=== PATIENT | female | born 1970 | race Caucasian/White ===

== ENCOUNTER 2016-12-26 09:20 | Outpatient (CLI) | payer OTHER | END 2016-12-26 09:21 | disposition home or self-care (01) | LOC: RT 09:20 | PROVIDERS: ATTEND Family Medicine | DX: E66.01 Morbid (severe) obesity due to excess calories (principal) | CPT/HCPCS: 94010 ==

== ENCOUNTER 2017-01-01 12:41 | Outpatient (CLI) | payer OTHER ==
--- NOTE | 2017-01-02 09:29 | Mammography Report ---
DIGITAL BILATERAL SCREENING MAMMOGRAM: 01/01/2017 CLINICAL HISTORY: A 46-year-old female in for routine screening mammogram. Patient's family history is unknown. She has no surgical history. COMPARISON: 06/02/2008, 09/29/2009, 06/20/2011, 06/27/2011, 12/29/2011, 07/12/2012, 12/27/2012, 0209/2013, 12/07/2015 TECHNIQUE: Craniocaudad and oblique lateral views of each breast were obtained with [employer] [facility] digital mammography. Axillary exaggerated craniocaudad view of each breast was obtained to compli ment the exam. FINDINGS: Breast parenchyma consists of scattered fibroglandular densities. No significant clusters of calcification are seen. No significant masses are noted. No change is seen. IMPRESSION: BREASTS APPEAR RADIOGRAPHICALLY BENIGN. BIRADS CATEGORY 1 - NEGATIVE. RECOMMENDATIONS: Annual bilateral screening mammography. STANDARD QUALIFYING STATEMENTS 1. This examination was reviewed with the aid of Computer-Aided Detection (CAD). 2. A negative or benign imaging report should not delay biopsy if clinically suspicious findings are present. Consider surgical consultation if warranted. More than 5% of cancers are not identified by i maging. 3. Dense breasts may obscure an underlying neoplasm. JOB #: [id number] EXT JOB #:[id number]
== END 2017-01-01 12:42 | disposition home or self-care (01) ==
LOC: DI 12:41
PROVIDERS: ATTEND Family Medicine
DX: Z12.31 Encounter for screening mammogram for malignant neoplasm of breast (principal)
CPT/HCPCS: 77067

== ENCOUNTER 2017-01-02 09:33 | Outpatient (CLI) | payer OTHER | END 2017-01-02 09:34 | disposition home or self-care (01) | LOC: SC 09:33 | PROVIDERS: ATTEND Internal Medicine Pulmonary Disease | DX: G47.10 Hypersomnia, unspecified (principal); R06.83 Snoring; G47.8 Other sleep disorders | CPT/HCPCS: 99203; 99212 ==

== ENCOUNTER 2017-03-01 21:25 | Outpatient (CLI) | payer OTHER | END 2017-03-01 21:26 | disposition home or self-care (01) | LOC: SC 21:25 | PROVIDERS: ATTEND Internal Medicine Pulmonary Disease | DX: R06.83 Snoring (principal) | CPT/HCPCS: 95810 ==

== ENCOUNTER 2017-03-29 09:10 | Outpatient (CLI) | payer OTHER | END 2017-03-29 09:11 | disposition home or self-care (01) | LOC: SC 09:10 | PROVIDERS: ATTEND Nurse Practitioner Family | DX: R06.83 Snoring (principal) | CPT/HCPCS: 99212; 99213 ==

== ENCOUNTER 2018-01-18 09:15 | Outpatient (CLI) | payer OTHER ==
--- NOTE | 2018-01-21 17:02 | Mammography Report ---
Procedure Date: 01/18/2018 Accession Number: [id number] / [id number] Procedure: [facility]N - Screening Mammo Dig Bilat CPT Code: FULL RESULT: EXAM: Screening Mammo Dig Bilat DATE: 01/18/2018 9:35 AM CLINICAL HISTORY: 47-year-old female presents for screening mammogram. TECHNIQUE: Bilateral CC and MLO views were obtained. Additionally, a left XCCL view was obtained. COMPARISON: 01/01/2017, 12/07/2015, 07/22/2013. FINDINGS: The breasts demonstrate scattered fibroglandular densities bilaterally. No suspicious masses, clustered microcalcifications, or regions of architectural distortion are identified. IMPRESSION: Negative examination RECOMMENDATION: Routine annual screening unless otherwise clinically indicated. BIRADS CATEGORY 1: Negative STANDARD QUALIFYING STATEMENTS: 1. This examination was reviewed with the aid of Computer-Aided Detection (CAD). 2. A negative or benign imaging report should not delay biopsy if clinically suspicious findings are present. Consider surgical consultation if warrented. More than 5% of cancers are not identified by imaging. 3. Dense breasts may obscure an underlying neoplasm.
== END 2018-01-18 09:16 | disposition home or self-care (01) ==
LOC: DI.N 09:15
PROVIDERS: ATTEND Radiology Diagnostic Radiology
DX: Z12.31 Encounter for screening mammogram for malignant neoplasm of breast (principal)
CPT/HCPCS: 77067

== ENCOUNTER 2018-02-12 09:50 | Outpatient (CLI) | payer OTHER ==
[2018-02-12 12:33] LABS: CHOL/HDL RATIO 2.9 (<4.4); CHOLESTEROL 160 mg/dL; GLUCOSE,FASTING 94 mg/dL (70-100); HDL CHOLESTEROL 55 mg/dL; LDL CHOLESTEROL,CALCULATED 86 mg/dL; LDL/HDL RATIO 1.6 (<4.4); VLDL CHOLESTEROL 19 mg/dL
== END 2018-02-12 09:51 | disposition home or self-care (01) ==
LOC: LAB.WCP 09:50
PROVIDERS: ATTEND Registered Nurse
DX: Z01.419 Encounter for gynecological examination (general) (routine) without abnormal findings (principal)
CPT/HCPCS: 36415; 80061; 82947; 83721; 84443

== ENCOUNTER 2018-03-06 09:40 | Outpatient (CLI) | payer OTHER ==
--- NOTE | 2018-03-07 09:40 | Ultrasound Report ---
Reason: PELVIC AND PERINEAL PAIN Procedure Date: 03/06/2018 Accession Number: [id number] / [id number] Procedure: US - Pelvic w/Transvaginal CPT Code: FULL RESULT: EXAM: PELVIC ULTRASOUND EXAM DATE: 03/06/2018 10:39 AM. CLINICAL HISTORY: Pelvic and perineal pain. COMPARISON: None. TECHNIQUE: Realtime transabdominal pelvic scan performed to identify the uterus and adnexa and as an overview of other pelvic structures, followed by transvaginal scan to provide greater detail of the uterus and adnexa, with static image documentation. FINDINGS: Uterus: 13.2 x 7.5 x 5.7 cm, volume 295 cc. Anteverted position. Normal overall size and echotexture. Masses: Intramural thyroids are noted measuring up to 1.7 cm. Endometrium: There is focal fundal thickening of the endometrium up to 15 mm. This is within the upper limits of normal. The remaining endometrium is normal-appearing and thin. Cervix: Nabothian cysts are noted. Right Ovary: 3.1 x 2.5 x 1.5 cm, volume 6 cc. Normal echotexture and blood flow. Left Ovary: 2.2 x 2.2 x 1.8 cm, volume 4.6 cc. Normal echotexture and blood flow. Free Fluid: None. Other: None. IMPRESSION: Focal thickening within the fundus of the endometrium which is within limits of normal for the premenopausal patient. Follow up ultrasound in 2 weeks to assess for cyclic variation could be considered. RADIA
== END 2018-03-06 09:41 | disposition home or self-care (01) ==
LOC: DI 09:40
PROVIDERS: ATTEND Registered Nurse
DX: R10.2 Pelvic and perineal pain (principal)
CPT/HCPCS: 76830; 76856

== ENCOUNTER 2018-04-09 10:17 | Outpatient (CLI) | payer OTHER ==
[2018-04-09] MEDS ORDERED: BARIUM SULFATE 148 GM POWDER PO ONE (11:26)
[2018-04-09] MEDS ORDERED: BARIUM SULFATE 135 ML BOTTLE PO ONE (11:26)
--- NOTE | 2018-04-09 13:27 | XRAY Report ---
Reason: HIATAL HERNIA W/REFLUX, GERD Procedure Date: 04/09/2018 Accession Number: [id number] / [id number] Procedure: FL - UGI KUB W/Air CPT Code: FULL RESULT: ORIGINAL REPORT Reason: HIATAL HERNIA W/REFLUX, GERD Procedure Date: 04/09/2018 Accession Number: [id number] / [id number] Procedure: FL - UGI KUB W/Air CPT Code: FULL RESULT: EXAM: UPPER GI SERIES EXAM DATE: 04/09/2018 11:21 AM. CLINICAL HISTORY: HIATAL HERNIA W/REFLUX, GERD. COMPARISONS: None. TECHNIQUE: Routine double contrast upper gastrointestinal technique. Fluoroscopy Time: 4 minutes 23 seconds. Number of fluoroscopy images: 17. FINDINGS: Swallowing Mechanism: Normal oral phase and swallowing reflex. No episodes of tracheal penetration or aspiration evident. Esophageal Motility: Normal peristaltic stripping wave. Esophageal Mucosa: No ulcerations or masses. Gastroesophageal Junction: Tiny hiatal hernia occasionally present. No significant reflux demonstrated with or without Valsalva maneuvers. Stomach: Normal gastric mucosal pattern. No ulcers identified. Duodenum: Normal duodenal mucosal pattern. No ulcers or diverticula identified. Other: None. IMPRESSION: Tiny intermittently present hiatal hernia; otherwise negative double contrast upper GI. [facility] ADDENDUM #1 This addendum is to reflect that measurement was made to estimate the degree of sliding hiatal hernia. Within the margin of error, approximately 1.5 cm of the gastric antral region slide into the chest with the inspiration views obtained.
== END 2018-04-09 10:18 | disposition home or self-care (01) ==
LOC: DI 10:17
PROVIDERS: ATTEND Family Medicine
DX: K44.9 Diaphragmatic hernia without obstruction or gangrene (principal); K21.9 Gastro-esophageal reflux disease without esophagitis
CPT/HCPCS: 74247; A9270

== ENCOUNTER 2018-11-26 08:00 | Outpatient (CLI) | payer BC, OTHER ==
[2018-11-26 14:43] LABS: BASOPHILS % (AUTO) 0.6 %; EOSINOPHILS # (AUTO) 0.1 10^3/uL (0.0-0.7); EOSINOPHILS % (AUTO) 1.3 %; HGB - HEMOGLOBIN 12.8 g/dL (12.0-16.0); LYMPHOCYTES # (AUTO) 2.3 10^3/uL (1.5-3.5); LYMPHOCYTES % (AUTO) 35.9 %; MEAN CORPUSCULAR HEMOGLOBIN 28.4 pg (27.0-31.0); MEAN CORPUSCULAR HGB CONC 32.7 g/dL (32.0-36.0); MEAN CORPUSCULAR VOLUME 86.7 fL (81.0-99.0); MEAN PLATELET VOLUME 8.2 fL (7.9-10.8); MONOCYTES # (AUTO) 0.4 10^3/uL (0.0-1.0); MONOCYTES % (AUTO) 6.8 %; NEUTROPHILS # (AUTO) 3.5 10^3/uL (1.5-6.6); NEUTROPHILS % (AUTO) 55.4 %; PLT - PLATELET COUNT 301 10^3/uL (130-450); RED BLOOD COUNT 4.52 10^6/uL (4.20-5.40); RED CELL DISTRIBUTION WIDTH 14.4 % (12.0-15.0); WHITE BLOOD COUNT 6.3 x10^3/uL (4.8-10.8)
[2018-11-26 14:55] LABS: ALBUMIN 3.7 g/dL (3.2-5.5); ALBUMIN/GLOBULIN RATIO 1.1 (1.0-2.2); ALKALINE PHOSPHATASE 68 IU/L (42-121); ALT ALANINE AMINOTRANSFERASE 14 IU/L (10-60); AST ASPARTATE AMINOTRANSFERASE 19 IU/L (10-42); BILIRUBIN,TOTAL 0.5 mg/dL (0.2-1.0); BUN - BLOOD UREA NITROGEN 12 mg/dL (6-20); CARBON DIOXIDE - CO2 26 mmol/L (21-32); CHLORIDE 102 mmol/L (101-111); CREATININE 0.8 mg/dL (0.4-1.0); GFR - MDRD 77 (>89); GLUCOSE 96 mg/dL (70-100); SODIUM 137 mmol/L (135-145)
[2018-11-26 15:00] LABS: CRP - C-REACTIVE PROTEIN < 1.0 mg/dL (0-1.0)
== END 2018-11-26 08:01 | disposition home or self-care (01) ==
LOC: LAB.WCP 08:00
PROVIDERS: ATTEND Physician Assistant Medical
DX: R20.2 Paresthesia of skin (principal)
CPT/HCPCS: 36415; 80053; 84443; 85025; 85651; 86140

== ENCOUNTER 2018-11-29 07:45 | Outpatient (CLI) | payer BC ==
[2018-11-29] MEDS ORDERED: GADOBUTROL 10 MMOL/10 ML VIAL ONE (08:40)
--- NOTE | 2018-11-29 17:21 | MRI Report ---
Reason: FACIAL PARESTHESIA Procedure Date: 11/29/2018 Accession Number: [id number] / [id number] Procedure: MRI - Brain W/WO CPT Code: FULL RESULT: MRI BRAIN WITHOUT AND WITH CONTRAST INDICATION: 48-year-old female with facial paresthesias. Concern for possible multiple sclerosis. Please assess. TECHNIQUE: 1. Sagittal T1 3D and sagittal T2 FLAIR. 2. Axial T1 3D, FLAIR, T2 and DWI. 3. 10 cc of IV Gadavist. T1 3D and T1 spin-echo axials. COMPARISON: 02/13/2014. FINDINGS: Ventricular size is normal. Again demonstrated is a mild amount of white matter disease in the supratentorial brain, manifested as punctate T2 hyperintensities that are scattered throughout the deep and subcortical white matter bilaterally. A frontoparietal distribution predominates. The distribution is similar to prior study. In addition, the number of lesions is similar without apparent significant interval progression since the prior examination. There is no involvement of the immediate periventricular or pericallosal regions. No T2 hyperintensities seen in the corpus callosum itself. In addition, no discrete brainstem, cerebellar or cerebellar peduncle lesion is demonstrated. Of note, on image 12 of series 701 there appears to be a small curvilinear focus of high signal in the left side of the pio. However, this is not confirmed as a real finding on any of the other sequences. This represents artifact. No obvious pathology seen in the imaged upper cervical spinal cord. Flow voids are demonstrated in the main intracranial arteries. No abnormal diffusion restriction is demonstrated. A T2* GRE sequence has not been performed; however, there is no evidence of acute or chronic hemorrhage on the sequences provided. No enhancing space-occupying mass lesion is demonstrated. No pathologic meningeal or cranial nerve enhancement is demonstrated. In particular, there is no abnormal enhancement of cisternal segment of either trigeminal nerve. In addition, no evidence of enhancing mass lesion in either Meckel's cave. Limited assessment of the orbits reveals no gross pathology. There is mild mucosal thickening in the ethmoid air cells. A small mucus retention cyst is seen in the right maxillary sinus. There is mucosal thickening with mucous retention cyst in the left frontal sinus, unchanged. The paranasal sinuses are otherwise clear. A small amount of fluid has developed in air cells at the right mastoid tip. There is no soft tissue swelling overlying the right mastoid. No evidence of an obstructing nasopharyngeal mass. The middle ear cavities and left mastoid appear clear. IMPRESSION: 1. Again demonstrated is a very mild amount of white disease in the supratentorial brain. The etiology is uncertain. Differential diagnostic considerations would include virtually the entire gamut of white matter disease. However, the index of suspicion for multiple sclerosis is very low. 2. Imaging of the brain is otherwise unremarkable. No evidence of infarction, hemorrhage, space-occupying mass lesion or other acute intracranial pathology. 3. There has been interval development of a small amount of fluid at the right mastoid tip. Etiology is uncertain. The possibility of active mastoid infection is considered unlikely; however, clinical correlation is advised.
== END 2018-11-29 07:46 | disposition home or self-care (01) ==
LOC: DI 07:45
PROVIDERS: ATTEND Physician Assistant Medical
DX: R20.2 Paresthesia of skin (principal); R90.82 White matter disease, unspecified
CPT/HCPCS: 70553; A9585

== ENCOUNTER 2019-02-27 13:55 | Outpatient (CLI) | payer BC ==
--- NOTE | 2019-03-03 16:45 | Mammography Report ---
Reason: SCREENING MAMMO Procedure Date: 02/27/2019 Accession Number: [id number] / [id number] Procedure: [facility] - Screening Mammo w/Matthew CPT Code: FULL RESULT: EXAM: Screening Mammo w/Matthew DATE: 02/27/2019 2:28 PM CLINICAL HISTORY: Routine screening TECHNIQUE: (B) - Bilateral CC and MLO views were obtained. COMPARISON: 01/18/2018, 01/01/2017, 12/07/2015 and to 414 PARENCHYMAL PATTERN: (D) - The breasts demonstrate heterogeneously dense fibroglandular parenchyma bilaterally. FINDINGS: No significant interval change. There are no suspicious masses, calcifications, or areas of distortion. IMPRESSION: Negative examination. BI-RADS category 1. RECOMMENDATION: (ANNUAL) - Recommend routine annual screening mammography. BI-RADS CATEGORY: (1) - Negative. STANDARD QUALIFYING STATEMENTS: 1. This examination was not reviewed with the aid of Computer-Aided Detection (CAD). 2. A negative or benign imaging report should not preclude biopsy if clinically suspicious findings are present. 3. Dense breasts may obscure an underlying neoplasm. 4. This examination was reviewed with the aid of 3D breast imaging (tomosynthesis).
== END 2019-02-27 13:56 | disposition home or self-care (01) ==
LOC: DI 13:55
DX: Z12.31 Encounter for screening mammogram for malignant neoplasm of breast (principal)
CPT/HCPCS: 77063; 77067

== ENCOUNTER 2019-03-12 19:12 | Outpatient (CLI) | payer BC ==
--- NOTE | 2019-03-14 08:46 | Ultrasound Report ---
Reason: DUB Procedure Date: 03/12/2019 Accession Number: [id number] / [id number] Procedure: US - Pelvic w/Transvaginal CPT Code: FULL RESULT: EXAM: PELVIC ULTRASOUND EXAM DATE: 03/12/2019 09:00 PM CLINICAL HISTORY: Dysfunctional uterine bleeding. COMPARISON: None. TECHNIQUE: Real-time transabdominal pelvic scan performed to identify the uterus and adnexa and as an overview of other pelvic structures, followed by transvaginal scan to provide greater detail of the uterus and adnexa, with static image documentation. FINDINGS: Uterus: 13.2 x 5.5 x 8 cm, volume 300.5 cc. Anteverted position. Heterogeneous myometrium. Masses: Lobular hypoechoic subserosal anterior/lower uterine segment fibroid measuring 2.1 x 2 x 2.6 cm. Endometrium: 13 mm. Seen only on transabdominal imaging. No abnormal flow or focal mass. Cervix: Multiple nabothian cysts are noted. No mass. Largest cyst measures 1.2 cm and contains debris. Right Ovary: 1.5 x 1.4 x 1.5 cm, volume 1.6 cc. Normal echotexture and blood flow. Left Ovary: 2.2 x 1.4 x 1.4 cm, volume 2.2 cc. Normal echotexture and blood flow. Free Fluid: None. Other: Technically challenging study due to body habitus. IMPRESSION: 1. 2.6 cm subserosal anterior uterine/lower uterine segment fibroid. 2. Endometrium measures up to 13 mm. No focal mass or abnormal flow. 3. Normal bilateral ovaries and adnexa. RADIA
== END 2019-03-12 19:13 | disposition home or self-care (01) ==
LOC: DI 19:12
PROVIDERS: ATTEND Obstetrics & Gynecology
DX: N93.8 Other specified abnormal uterine and vaginal bleeding (principal); D25.2 Subserosal leiomyoma of uterus
CPT/HCPCS: 76830; 76856

== ENCOUNTER 2019-03-27 18:03 | Outpatient (CLI) | payer BC | END 2019-03-27 18:04 | disposition E | LOC: EMS 18:03 | PROVIDERS: ATTEND Surgery | DX: I46.9 Cardiac arrest, cause unspecified (principal) ==